=== PATIENT | female | born 1965 | race Caucasian/White ===

== ENCOUNTER 2017-05-19 16:15 | Inpatient (IN) | payer OTHER ==
[~2017-05-19] VITALS: Ht 172.7 cm; Wt 89.1 kg
[2017-05-19 16:27] VITALS: Ht 172.7 cm; Wt 89.1 kg
[2017-05-19 17:22] LABS: BASOPHIL % 0.4 % (0-2); PLATELET COUNT 265 x10^3mcL (130-400); RED CELL DISTRIBUTION WIDTH 14.1 % (11.5-14.5)
[2017-05-19 17:33] LABS: CALCIUM 8.8 mg/dL (8.5-10.1); CARBON DIOXIDE 25.6 mmol/L (21-32); CREATININE SERUM 1.1 mg/dL (0.6-1.0); POTASSIUM SERUM 3.8 mmol/L (3.5-5.1)
[2017-05-19 17:44] LABS: ALBUMIN 3.5 g/dL (3.4-5.0); BILIRUBIN TOTAL 0.17 mg/dL (0.20-1.00); TOTAL PROTEIN, SERUM 7.2 g/dL (6.4-8.2)
[2017-05-19 19:12] LABS: CHOLESTEROL/HDL RATIO 3.2; MAGNESIUM 1.9 mg/dL (1.8-2.4); PHOSPHOROUS 4.4 mg/dL (2.5-4.9)
[2017-05-19 19:19] LABS: FREE T4 1.04 ng/dL (0.76-1.46); FREE THYROXINE INDEX 2.8 ug/dL (1.4-4.5); T4(THYROXINE) 7.8 ug/dL (4.7-13.3)
[2017-05-19 19:30] VITALS: BP 125/63
[2017-05-19 20:12] VITALS: BP 125/63
[2017-05-20 06:07] VITALS: BP 153/87
[2017-05-20 07:41] LABS: BASOPHIL % 0.7 % (0-2); PLATELET COUNT 244 x10^3mcL (130-400); RED CELL DISTRIBUTION WIDTH 14.3 % (11.5-14.5)
[2017-05-20 08:25] LABS: CALCIUM 8.4 mg/dL (8.5-10.1); CARBON DIOXIDE 26.3 mmol/L (21-32); CHLORIDE SERUM 109 mmol/L (98-107); CREATININE SERUM 0.7 mg/dL (0.6-1.0); GFR1 > 60 mL/min; GLUCOSE SERUM 96 mg/dL (74-106); PHOSPHOROUS 3.4 mg/dL (2.5-4.9); POTASSIUM SERUM 4.2 mmol/L (3.5-5.1); SODIUM SERUM 143 mmol/L (136-145)
[2017-05-20 09:36] VITALS: BP 112/73
[2017-05-20 10:08] LABS: microscopic required? NO
[2017-05-20 10:26] LABS: UA SPECIFIC GRAVITY 1.025 (1.005-1.035); urine erythrocyte NEGATIVE (NEGATIVE)
[2017-05-20 11:05] LABS: AMPHETAMINE QUAL UR NONE DETECTED (NEG <=1000)
[2017-05-20 13:24] VITALS: BP 131/87
[2017-05-20] MEDS ORDERED: MOT800 PO (16:34)
[2017-05-20 17:21] VITALS: BP 146/85
[2017-05-20] MEDS ORDERED: LIPI10 PO (18:37)
[2017-05-20] MEDS ORDERED: NEU300 PO (18:37)
[2017-05-20 21:12] VITALS: BP 139/73
[2017-05-21 06:12] VITALS: BP 134/84
[2017-05-21 09:22] VITALS: BP 108/55
[2017-05-21] MEDS ORDERED: ECO81 PO (09:25)
[2017-05-21 10:06] VITALS: BP 108/55
[2017-05-21 12:16] VITALS: BP 113/71
== END 2017-05-21 13:20 | disposition home or self-care (01) | DRG 48 ==
LOC: ED 16:15 → DU 18:08
PROVIDERS: Emergency Medicine; Family Medicine Sports Medicine; ADMIT Family Medicine
DX: M54.12 Radiculopathy, cervical region (principal); N17.0 Acute kidney failure with tubular necrosis; G62.9 Polyneuropathy, unspecified; E78.1 Pure hyperglyceridemia; Z53.29 Procedure and treatment not carried out because of patient's decision for other reasons; R73.03 Prediabetes; F12.90 Cannabis use, unspecified, uncomplicated; I73.9 Peripheral vascular disease, unspecified; Z87.891 Personal history of nicotine dependence; Z56.0 Unemployment, unspecified
CPT/HCPCS: 83880; 84439; J1100; J1885; J2405; J3010; J7030; Q0092